=== PATIENT | female | born 1990 | race Caucasian/White ===

== ENCOUNTER 2017-03-04 16:19 | Emergency (ER) | payer OTHER ==
--- NOTE | 2017-03-04 18:19 | XR ---
EXAMINATION TYPE: XR ankle complete LT DATE OF EXAM: 03/04/2017 COMPARISON: NONE HISTORY: Pain TECHNIQUE: 3 views FINDINGS: Ankle mortise is anatomic. I see no fracture nor dislocation. There is a small plantar calc aneal spur. IMPRESSION: Mild spurring otherwise negative exam.
--- NOTE | 2017-03-04 18:34 | ED ---
Lower Extremity Injury HPI - General Chief Complaint: Extremity Injury, Lower Stated Complaint: Left Ankle Pain Time Seen by Provider: 03/04/17 17:28 Source: patient Mode of arrival: ambulatory Limitations: no limitations - History of Present Illness Initial Comments: Patient is a 26-year-old female presenting to the emergency department with complaints of left ankle pain 1 week. Patient states that she tripped and fell last week but she does not like coming to the hospital so she is trying to manage the pain at home with ice and Motrin. Patient is a previous injury or surgery to left lower extremity. Patient is currently complaining of sharp pain to her left ankle with movement, relieved at rest. Patient was ambulatory at scene of injury and is ambulatory in the emergency department. Patient denies recent illness, fevers, chills, numbness, tingling, shortness of breath, abdominal pain or any other symptoms. - Related Data Home Medications Medication Instructions Recorded Confirmed Ibuprofen [Motrin] 800 mg PO Q6HR PRN 03/04/17 03/04/17 Allergies Allergy/AdvReac Type Severity Reaction Status Date / Time No Known Allergies Allergy Verified 03/04/17 18:17 Review of Systems ROS Statement: Those systems with pertinent positive or pertinent negative responses have been documented in the HPI. ROS Other: All systems not noted in ROS Statement are negative. Past Medical History Past Medical History: No Reported History History of Any Multi-Drug Resistant Organisms: None Reported Past Surgical History: No Surgical Hx Reported Past Psychological History: No Psychological Hx Reported Smoking Status: Former smoker Past Alcohol Use History: Occasional Past Drug Use History: None Reported General Exam Limitations: no limitations General appearance: alert, in no apparent distress Head exam: Present: atraumatic, normocephalic, normal inspection Eye exam: Present: normal appearance. Absent: scleral icterus, conjunctival injection, periorbital swelling, periorbital tenderness ENT exam: Present: normal exam, mucous membranes moist, normal external ear exam Neck exam: Present: normal inspection Respiratory exam: Present: normal lung sounds bilaterally. Absent: respiratory distress, wheezes, rales, rhonchi Cardiovascular Exam: Present: regular rate, normal rhythm, normal heart sounds. Absent: systolic murmur GI/Abdominal exam: Present: soft, normal bowel sounds. Absent: tenderness Left Knee exam: Present: normal inspection, full ROM. Absent: tenderness, swelling Lower Leg exam: Present: normal inspection, full ROM. Absent: tenderness, swelling Ankle exam: Present: full ROM (Painful), tenderness (Tenderness and mild swelling to the medial malleolus.), swelling. Absent: ecchymosis, deformity Foot/Toe exam: Present: normal inspection, full ROM. Absent: tenderness, ecchymosis, deformity Neurovascular tendon exam: Present: no vascular compromise. Absent: pulse deficit, abnormal cap refill, motor deficit, sensory deficit, foot drop, significant pain with passive ROM of distal joint Gait: not tested/not observed Back exam: Present: normal inspection Neurological exam: Present: alert, oriented X3, CN II-XII intact, other (No focal deficits noted) Psychiatric exam: Present: normal affect, normal mood Skin exam: Present: warm, dry, intact, normal color Medical Decision Making - Medical Decision Making Left ankle sprain. Patient placed in a posterior short leg splint. Patient provided with prescription for crutches. Patient instructed to follow-up with primary care physician and orthopedic service. Patient agrees with treatment plan. Discharge instructions and return parameters reviewed. - Radiology Data Radiology results: report reviewed X-ray left ankle: Ankle mortise is anatomic. No fracture or dislocation. Small plantar calcaneal spur. Otherwise negative exam. Disposition Clinical Impression: Left ankle sprain Disposition: HOME SELF-CARE Condition: Poor Instructions: Ankle Sprain (ED) Additional Instructions: Avoid activity that causes pain Ice 20 minutes 4 times a day usually for 2-3 days Non-weight bearing while acute pain Keep elevated as much as possible 24-48 hours. Continue Tylenol or Motrin for pain. Return to the emergency department with symptoms of increased swelling, pain, numbness, tingling, or foot feeling cold to touch. Follow-up with primary service and orthopedic service as directed. Referrals: None,Stated [Primary Care Provider] - 1-2 days [facility] [Provider Group] - 1-2 days Time of Disposition: 19:02
[2017-03-04] MEDS ORDERED: HYDROcodone/APAP 5-325MG 1 EACH TAB PO STA (18:54)
== END 2017-03-04 19:16 | disposition home or self-care (01) ==
LOC: EC 16:19
DX: S93.402A Sprain of unspecified ligament of left ankle, initial encounter (principal); W01.0XXA Fall on same level from slipping, tripping and stumbling without subsequent striking against object, initial encounter
CPT/HCPCS: 29515; 99283